=== PATIENT | female | born 1950 | race Two or more races ===

== ENCOUNTER 2018-12-17 14:00 | Emergency (ER) | payer OTHER ==
[~2018-12-17] VITALS: Ht 162.6 cm; Wt 72.6 kg
[2018-12-17 14:10] VITALS: BP 172/59
--- NOTE | 2018-12-17 14:10 | NUR ---
ED Nurse Note: pt brought by RA from home due to numbness on all over the body for 1 hr and tingling sensation on tongue. no pain. AAO x4. respirations even and non-labored noted. BS 199 at the bed side. ambulatory with minimal assistance. no dizziness. 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 skin warm to touch. no open wound noted. right mastectomy done. will wait for the further order.
[2018-12-17] MEDS ORDERED: PLAVIX75 MG ORAL (14:11)
--- NOTE | 2018-12-17 14:12 | NUR ---
ED Nurse Note: DAUGHTER'S INFO: MARC
--- NOTE | 2018-12-17 14:18 | Emergency Room Report ---
History of Present Illness General Chief Complaint: Generalized Weakness Source: Patient, EMS Present Illness HPI The patient presents with generalized weakness. She was at work when this began. She had a history of TIA in the past. This was several years ago. She feels a dry mouth and also weak when she is standing. She believes her sugars may be elevated. She was transported by BLS and they did not check a blood sugar. They did an MLAPPS test which was negative in the field. Patient denies headache. No fevers or chills. No nausea, vomiting, diarrhea, dysuria, change in bowels, chest pain, palpitations or abdominal pain. She denies any rashes. She does feel anxious. (See medical treatment.) Allergies: Coded Allergies: No Known Allergies (Unverified , 12/17/18) Patient History Past Medical History: see triage record Social History: Denies: smoking Social History Narrative lives by herself Reviewed Nursing Documentation: PMH: Agreed; PSxH: Agreed Nursing Documentation-PMH Hx Cardiac Problems: Yes - TIA(2019) Hx Hypertension: Yes Hx Diabetes: Yes Hx Cancer: Yes - BREAST, R BREAST MASTECTOMY Review of Systems All Other Systems: negative except mentioned in HPI Physical Exam Vital Signs Date Time Temp Pulse Resp B/P (MAP) Pulse Ox O2 Delivery O2 Flow Rate FiO2 12/17/18 14:03 98.2 76 19 189/76 (113) 95 Room Air Sp02 EP Interpretation: reviewed, normal General Appearance: well appearing, no apparent distress, GCS 15 Head: normocephalic, atraumatic Eyes: bilateral eye normal inspection, bilateral eye PERRL, bilateral eye EOMI ENT: dry mucus membranes Neck: supple Respiratory: lungs clear, normal breath sounds Cardiovascular #1: regular rate, rhythm Cardiovascular #2: 2+ radial (R) Gastrointestinal: normal inspection, normal bowel sounds, non tender, no mass, non-distended Genitourinary: no CVA tenderness Musculoskeletal: back normal, normal range of motion, no calf tenderness Neurologic: alert, oriented x3, DTRs symmetric, sensory intact, cerebellar normal, speech normal Psychiatric: depressed affect, anxious - But calm Skin: no rash Medical Decision Making Diagnostic Impression: Primary Impression: Adverse reaction to cannabis Qualified Codes: T40.7X5A - Adverse effect of cannabis (derivatives), initial encounter Additional Impression: Hyperglycemia ER Course Diabetic patient presents with generalized weakness with a history of a TIA. Differential includes TIA, dehydration, hyperglycemia, elect light imbalance, acute myocardial infarction amongst others. The patient will be evaluated with EKG, chest x-ray, CT the head and labs. The patient will receive IV hydration here. 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 EKG without injury. Chest x-ray clear. 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 Labs with normal CBC, CMP with slightly elevated glucose. Tox positive for THC. 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 The family confirms that they were edibles. The patient did not know this and this is the first time she is exposed to cannabis. She is improved but still feels strange. The family is willing to take her home to observe her there. No acute emergency. Patient is stable for outpatient observation and treatment. Laboratory Tests Test 12/17/18 14:25 12/17/18 14:37 White Blood Count 8.6 K/UL (4.8-10.8) Red Blood Count 3.86 M/UL (4.20-5.40) L Hemoglobin 12.6 G/DL (12.0-16.0) Hematocrit 36.5 % (37.0-47.0) L Mean Corpuscular Volume 94 FL (80-99) Mean Corpuscular Hemoglobin 32.6 PG (27.0-31.0) H Mean Corpuscular Hemoglobin Concent 34.5 G/DL (32.0-36.0) Red Cell Distribution Width 10.9 % (11.6-14.8) L Platelet Count 242 K/UL (150-450) Mean Platelet Volume 7.0 FL (6.5-10.1) Neutrophils (%) (Auto) 54.7 % (45.0-75.0) Lymphocytes (%) (Auto) 32.3 % (20.0-45.0) Monocytes (%) (Auto) 7.6 % (1.0-10.0) Eosinophils (%) (Auto) 4.3 % (0.0-3.0) H Basophils (%) (Auto) 1.1 % (0.0-2.0) Prothrombin Time 10.7 SEC (9.30-11.50) Prothrombin Time INR 1.0 (0.9-1.1) PTT 25 SEC (23-33) Sodium Level 135 MMOL/L (136-145) L Potassium Level 3.9 MMOL/L (3.5-5.1) Chloride Level 100 MMOL/L (98-107) Carbon Dioxide Level 27 MMOL/L (21-32) Anion Gap 8 mmol/L (5-15) Blood Urea Nitrogen 27 mg/dL (7-18) H Creatinine 1.1 MG/DL (0.55-1.30) Estimate Glomerular Filtration Rate 49.6 mL/min (>60) Glucose Level 192 MG/DL (74-106) H Calcium Level 9.0 MG/DL (8.5-10.1) Total Bilirubin 0.4 MG/DL (0.2-1.0) Aspartate Amino Transferase (AST) 21 U/L (15-37) Alanine Aminotransferase (ALT) 32 U/L (12-78) Alkaline Phosphatase 99 U/L (46-116) Total Creatine Kinase 125 U/L (26-308) Troponin I 0.000 ng/mL (0.000-0.056) Pro-B-Type Natriuretic Peptide 200 pg/mL (0-125) H Total Protein 7.4 G/DL (6.4-8.2) Albumin 3.9 G/DL (3.4-5.0) Globulin 3.5 g/dL Albumin/Globulin Ratio 1.1 (1.0-2.7) Lipase 237 U/L (73-393) Urine Color Yellow Urine Appearance Clear Urine pH 5 (4.5-8.0) Urine Specific [place] 1.015 (1.005-1.035) Urine Protein Negative (NEGATIVE) Urine Glucose (UA) Negative (NEGATIVE) Urine Ketones Negative (NEGATIVE) Urine Blood 1+ (NEGATIVE) H Urine Nitrite Negative (NEGATIVE) Urine Bilirubin Negative (NEGATIVE) Urine Urobilinogen Normal MG/DL (0.0-1.0) Urine Leukocyte Esterase 2+ (NEGATIVE) H Urine RBC 0-2 /HPF (0 - 2) Urine WBC 2-4 /HPF (0 - 2) Urine Squamous Epithelial Cells Few /LPF (NONE/OCC) Urine Bacteria Few /HPF (NONE) Urine Opiates Screen Negative (NEGATIVE) Urine Barbiturates Screen Negative (NEGATIVE) Phencyclidine (PCP) Screen Negative (NEGATIVE) Urine Amphetamines Screen Negative (NEGATIVE) Urine Benzodiazepines Screen Negative (NEGATIVE) Urine Cocaine Screen Negative (NEGATIVE) Urine Marijuana (THC) Screen Positive (NEGATIVE) H EKG Diagnostic Results Rate: normal Rhythm: NSR ST Segments: no acute changes - Nonspecific ST-T wave changes rate 94 Rhythm Strip Diag. 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
[2018-12-17 14:45] LABS: BASOPHILS % (AUTO) 1.1 % (0.0-2.0); EOSINOPHILS % (AUTO) 4.3 % (0.0-3.0); HEMATOCRIT 36.5 % (37.0-47.0); HEMOGLOBIN 12.6 G/DL (12.0-16.0); LYMPHOCYTES % (AUTO) 32.3 % (20.0-45.0); MEAN CORPUSCULAR VOLUME 94 FL (80-99); MONOCYTES % (AUTO) 7.6 % (1.0-10.0); NEUTROPHILS % (AUTO) 54.7 % (45.0-75.0); PLATELET COUNT 242 K/UL (150-450); RED BLOOD COUNT 3.86 M/UL (4.20-5.40); RED CELL DISTRIBUTION WIDTH 10.9 % (11.6-14.8); WHITE BLOOD COUNT 8.6 K/UL (4.8-10.8)
[2018-12-17 14:50] LABS: APPEARANCE,URINE CLEAR; BILIRUBIN, URINE NEGATIVE (NEGATIVE); GLUCOSE, URINE (UA) NEGATIVE (NEGATIVE); KETONES,URINE NEGATIVE (NEGATIVE); LEUKOCYTE ESTERASE ,URINE 2+ (NEGATIVE); NITRITE,URINE NEGATIVE (NEGATIVE); PH,URINE 5 (4.5-8.0); PROTEIN,URINE NEGATIVE (NEGATIVE); UROBILINOGEN,URINE NORMAL MG/DL (0.0-1.0)
[2018-12-17 14:51] LABS: COLOR,URINE YELLOW
[2018-12-17 14:59] LABS: ANION GAP 8 mmol/L (5-15); BLOOD UREA NITROGEN 27 mg/dL (7-18); CARBON DIOXIDE 27 MMOL/L (21-32); CHLORIDE 100 MMOL/L (98-107); CREATININE 1.1 MG/DL (0.55-1.30); POTASSIUM 3.9 MMOL/L (3.5-5.1); SODIUM 135 MMOL/L (136-145)
--- NOTE | 2018-12-17 15:00 | NUR ---
ED Nurse Note: family member at the bed side. RN able to confirmed with pt that ate ediable CBD candy by accident.
[2018-12-17 15:03] VITALS: BP_SYST 168; BP_SYST 170; BP_DIAS 52; BP_DIAS 63
[2018-12-17 15:09] LABS: ALANINE AMINOTRANSFERASE 32 U/L (12-78); ALBUMIN 3.9 G/DL (3.4-5.0); ALBUMIN/GLOBULIN RATIO 1.1 (1.0-2.7); ALKALINE PHOSPHATASE 99 U/L (46-116); ASPARTATE AMINO TRANSFERASE 21 U/L (15-37); BILIRUBIN,TOTAL 0.4 MG/DL (0.2-1.0); CREATINE KINASE 125 U/L (26-308)
--- NOTE | 2018-12-17 15:29 | Diagnostic Imaging Report ---
Indications: Headache, weakness Technique: Spiral acquisitions obtained through the brain. Angled axial and coronal 5 x 5 mm slices were reconstructed. Total dose length product 1442.5 mGycm. CTDI vol(s) 70.38 mGy. Dose reduction achieved using automated exposure control Comparison: None. Findings: There is a cortical calcification in the left parietal lobe. No acute intracranial hemorrhage or edema, mass effect, nor midline shift. Normal ramírez-white differentiation. Normal size ventricles and extra axial CSF spaces. Visualized orbits are unremarkable. The visualized sinuses are clear. The mastoids are clear. 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
[2018-12-17 16:06] VITALS: BP 160/54
--- NOTE | 2018-12-17 16:06 | Diagnostic Imaging Report ---
Indication: Cough Technique: One view of the chest Comparison: none Findings: The heart is borderline enlarged. There is equivocal minimal interstitial congestion. No focal airspace consolidation. No definite effusions. Impression: Cardiomegaly. Equivocal minimal interstitial congestion-correlate with clinical findings
--- NOTE | 2018-12-17 16:08 | NUR ---
ER DISCHARGE NOTE: Patient is cleared to be discharged per ERMD with family member, pt is aox4, on room air, with stable vital signs. pt was given dc instructions, pt was able to verbalize understanding, pt id band and iv site removed without complications. pt is able to ambulate with steady gait. pt took all belongings.
--- NOTE | 2018-12-20 13:16 | Cardiology Report ---
APPROVED REPORT EKG Measurement Heart [id number] Normal sinus rhythm Nonspecific ST and T wave abnormality Abnormal ECG
== END 2018-12-17 16:10 | disposition home or self-care (01) ==
LOC: EDBD 14:00 → EMR 15:01
DX: T40.7X5A Adverse effect of cannabis (derivatives), initial encounter (principal); E11.65 Type 2 diabetes mellitus with hyperglycemia; Z86.73 Personal history of transient ischemic attack (TIA), and cerebral infarction without residual deficits; I10 Essential (primary) hypertension; Z85.3 Personal history of malignant neoplasm of breast; Z90.11 Acquired absence of right breast and nipple; Y92.009 Unspecified place in unspecified non-institutional (private) residence as the place of occurrence of the external cause
CPT/HCPCS: 36415; 70450; 71045; 80053; 80307; 81003; 82550; 83690; 83880; 84484; 85025; 85610; 85730; 93005; 96360; 99284